=== PATIENT | female | born 1980 | race Caucasian/White ===

== ENCOUNTER → 2016-08-17 12:31 | Outpatient (CLI) | payer BC ==
[2014-05-14 04:22] VITALS: BMI 29.9
[~2016-08-17 12:31] MED LIST: DIABETA2.5 MG PO; IBUPROFEN800 MG PO; PERCOCET 10/3251 TA1 PO; PRENAVITE1 TAB PO
== END | disposition home or self-care (01) ==
LOC: D.LDO 12:31
DX: O30.93 Multiple gestation, unspecified, third trimester (principal); Z3A.32 32 weeks gestation of pregnancy

== ENCOUNTER → 2016-08-20 16:57 | Outpatient (CLI) | payer BC ==
[2014-05-14 04:22] VITALS: BMI 29.9
== END | disposition home or self-care (01) ==
LOC: D.LDO 16:57
DX: O26.893 Other specified pregnancy related conditions, third trimester (principal); Z3A.33 33 weeks gestation of pregnancy

== ENCOUNTER → 2016-08-24 12:45 | Outpatient (CLI) | payer BC ==
[2014-05-14 04:22] VITALS: BMI 29.9
== END | disposition home or self-care (01) ==
LOC: D.LDO 12:45
DX: Z34.93 Encounter for supervision of normal pregnancy, unspecified, third trimester (principal); Z3A.33 33 weeks gestation of pregnancy

== ENCOUNTER → 2016-08-27 17:42 | Outpatient (CLI) | payer BC ==
[2014-05-14 04:22] VITALS: BMI 29.9
== END | disposition home or self-care (01) ==
LOC: D.LDO 17:42
DX: O30.93 Multiple gestation, unspecified, third trimester (principal); Z3A.34 34 weeks gestation of pregnancy

== ENCOUNTER → 2016-08-31 12:51 | Outpatient (CLI) | payer BC ==
[2014-05-14 04:22] VITALS: BMI 29.9
== END | disposition home or self-care (01) ==
LOC: D.LDO 12:51
DX: O09.893 Supervision of other high risk pregnancies, third trimester (principal); Z3A.34 34 weeks gestation of pregnancy

== ENCOUNTER → 2016-09-03 17:47 | Outpatient (CLI) | payer BC ==
[2014-05-14 04:22] VITALS: BMI 29.9
== END | disposition home or self-care (01) ==
LOC: D.LDO 17:47
DX: O30.93 Multiple gestation, unspecified, third trimester (principal); Z3A.35 35 weeks gestation of pregnancy

== ENCOUNTER → 2016-09-04 09:22 | Outpatient (CLI) | payer BC ==
[2014-05-14 04:22] VITALS: BMI 29.9
[2016-09-04 11:24] LABS: BASOPHILS 0.2 % (0.0-2.0); EOSINOPHILS 1.7 % (0-7); HEMATOCRIT 36.7 % (36.0-48.0); HEMOGLOBIN 12.3 g/dL (12-16); IMMATURE GRANULOCYTES 0.4 % (0-5); LYMPHOCYTES 20.9 % (15-50); MCH 31.1 pg (26.0-34.0); MCHC 33.5 g/dL (31.0-37.0); MCV 92.7 fL (80.0-100.0); MEAN PLATELET VOLUME 12.2 fL (7.4-10.4); MONOCYTES 4.4 % (2-11); NEUTROPHILS 72.4 % (40-80); PLATELET COUNT 182 10x3/uL (130-400); RBC 3.96 10x6/uL (4.00-5.40); RDW 13.9 % (11.5-14.5); WBC 8.9 10x3/uL (4.8-10.8)
[2016-09-04 11:34] LABS: APPEARANCE HAZY (CLEAR); BILIRUBIN NEGATIVE (NEGATIVE); COLOR YELLOW (YELLOW); GLUCOSE NEGATIVE (NEGATIVE); KETONE NEGATIVE (NEGATIVE); LEUKOCYTE ESTERASE TRACE (NEGATIVE); NITRITE NEGATIVE (NEGATIVE); PROTEIN TRACE mg/dL (NEGATIVE); SPECIFIC GRAVITY 1.015 (1.005-1.020); UROBILINOGEN NORMAL (NORMAL)
[2016-09-04 11:40] LABS: BACTERIA MODERATE /hpf (NONE SEEN); EPITHELIAL CELLS 0-5 /hpf (0-5); RED CELLS - URINE 0-5 /hpf (0-5); WHITE CELLS - URINE OCC /hpf (0-5)
== END | disposition home or self-care (01) ==
LOC: D.LDO 09:22
PROVIDERS: Obstetrics & Gynecology
DX: O30.003 Twin pregnancy, unspecified number of placenta and unspecified number of amniotic sacs, third trimester (principal); Z3A.35 35 weeks gestation of pregnancy

== ENCOUNTER → 2016-09-07 12:28 | Outpatient (CLI) | payer BC | END | disposition home or self-care (01) | LOC: D.LDO 12:28 | DX: O30.93 Multiple gestation, unspecified, third trimester (principal); Z3A.35 35 weeks gestation of pregnancy ==

== ENCOUNTER → 2016-09-10 11:35 | Outpatient (CLI) | payer BC ==
[2014-05-14 04:22] VITALS: BMI 29.9
== END | disposition home or self-care (01) ==
LOC: D.LDO 11:35
DX: O30.93 Multiple gestation, unspecified, third trimester (principal); Z3A.36 36 weeks gestation of pregnancy

== ENCOUNTER 2016-09-12 06:53 | Inpatient (IN) | payer BC ==
[2016-09-12] VITALS (10 sets, daily range): BP systolic 102–127; BP diastolic 66–85; Ht 152.4 cm; Wt 67.7 kg
[~2016-09-12] VITALS: Ht 152.4 cm; Wt 67.7 kg
[2016-09-12 08:47] LABS: HEMATOCRIT 41.7 % (36.0-48.0); HEMOGLOBIN 14.4 g/dL (12-16); MCH 31.1 pg (26.0-34.0); MCHC 34.5 g/dL (31.0-37.0); MCV 90.1 fL (80.0-100.0); MEAN PLATELET VOLUME 12.8 fL (7.4-10.4); RBC 4.63 10x6/uL (4.00-5.40); RDW 13.5 % (11.5-14.5); WBC 11.6 10x3/uL (4.8-10.8)
--- NOTE | 2016-09-12 09:42 | NUR ---
BABY A BORN AT 0920 BABY B BORN AT 0921
--- NOTE | 2016-09-12 10:45 | NUR ---
RECEIVED FROM RECOVERY ROOM FOLLOWING REPEAT C/S THIS AM. SEE SHIFT ASSESSMENT FOR NURSING ASSESSMENT. HOB AT 20 DEGREES PER PRESS TOOL MAKER TO NOT RAISE HOB AT THIS TIME DUE TO POTENTIAL FOR SPINAL BAHENA. IV PATENT, BABIN CATH PATENT AND ATTACHED TO LEG. UNABLE TO MOVE LE AT THIS TIME. ALERT AND ORIENTED WITHOUT C/O PAIN AT THIS TIME. SAW INFANTS IN OR AND READY TO SEE LUX. SIDE RAILS UP X 2, CALL LIGHT IN REACH.
--- NOTE | 2016-09-12 11:01 | NUR ---
DEMEROL TRIMMER CLIMBER INITIATED. 10 MG AT INTERVALS OF Q 10 MINS PER MD ORDER. PT INSTRUCTED ON DEMEROL TRIMMER CLIMBER ADMINISTRATION. ALSO INSTRUCTED ON PURPOSE OF PITOCIN . INSTRUCTED ON INCENTIVE SPIROMETER. SCDS' IN PLACE AND PUMP IS ON. ICE CHIPS GIVEN, ICE PACK ON INCISION, EXTRA BLANKET GIVEN FOR WARMTH.
--- NOTE | 2016-09-12 11:05 | NUR ---
U/2 FIRM, [place] SMALL INCENTIVE SPIROMETER X 3 COMPLETED WITH COUGH NOTED. EXPLAINED IMPORTANCE OF USING EVERY HOUR AND PRN TO PROMOTE DEEP BREATHS AND COUGHING. VERBALIZED UNDERSTANDING. VISITORS IN ROOM FOR SHORT TIME AND LEFT. SIDE RAILS REMAIN UP AND CALL LIGHT IN REACH.
--- NOTE | 2016-09-12 11:20 | NUR ---
U/2 FIRM RUBRA SMALL. CLEAN LUCY-PADS ON X 2. NO REQUESTS AT THIS TIME. TELEHEALTH NURSE EDUCATOR AND CALL LIGHT IN REACH.
--- NOTE | 2016-09-12 11:50 | NUR ---
300 ML PINK TINGE URINE EMPTIED FROM BABIN CATH. SMALL BLOOD CLOT NOTED IN BAG. URINE IN TUBING CLEAR YELLOW WITHOUT EVIDENCE OF BLOOD.
--- NOTE | 2016-09-12 12:09 | NUR ---
CONTACTED MR TONEY CRNA TO SEE HOW LONG PATIENT NEEDS TO LAY FLAT. HE OK'D RAISING BE 30-40 DEGREES FOR NEXT 3-4 HOURS. RAISED PT HOB 40 DEGRESS TO TO DRINK CLEAR LIQUID DIET.
--- NOTE | 2016-09-12 13:00 | NUR ---
ATE 100% CLEAR LIQUID DIET. BEGINNING TO MOVE LE SLIGHTLY. C/O STARTING TO FEEL SOME INCISIONAL PAIN STATES "I'VE ONLY PUSHED THAT BUTTON TWICE" REINSTRUCTED ON USE OF SOLAR DESIGN ENGINEER CONTROL AND ENCOURAGED TO USE NEEDED. VERBALIZED UNDERSTANDING. HAS SEEN INFANTS "I GOT TO CUDDLE THEM BRIEFLY AND TRIED TO BREASTFEED. I FELT SOME CRAMPING". SITTING AT 40 DEGREES WITHOUT C/O HEADACHE. VISITORS ARRIVED TO ROOM AT THIS TIME. CALL LIGHT IN REACH.
--- NOTE | 2016-09-12 14:11 | NUR ---
U/2 FIRM MIDLINE, RUBRA SMALL CLEAN LUCY-PADS X 2 PLACED. INCENTIVE SPIROMETER USED X 3. COUGH AND DEEP BREATHED. POSITIONED TO LEFT SIDE. SIDE RAILS UP X 2, CALL LIGHT AND READY MIX TRUCK DRIVER CONTROLS IN REACH. OFFERED OTHER PO FLUIDS BUT DECLINES AT THIS TIME. CALLED DR HARTMANN TO CHECK ON TORADOL ORDER FOR CONTINUED 7/10 PAIN. NEW ORDERS RECEIVED.
--- NOTE | 2016-09-12 14:24 | NUR ---
TORADOL 30 MG GIVEN IVP AFTER DISCUSSING MEDICATION WITH PATIENT.
--- NOTE | 2016-09-12 15:03 | NUR ---
AROUSED EASILY FROM SLEEP. 5/10 ON PAIN SCALE, PUSHING MANAGER CHEMISTRY PRN. NO DISTRESS NOTED. I&0 COMPLETED. ENCOURAGED TO REST AND CONTINUE MANAGER CHEMISTRY PRN. SIDE RAILS UP X 2, CALL LIGHT IN REACH.
--- NOTE | 2016-09-12 16:15 | NUR ---
LAYING ON LEFT SIDE. PLAN REPOSITION TO RIGHT SIDE AFTER LYoly HERNANDEZ, NURSERY AIRCRAFT PART ASSEMBLER IS FINISH TALKING TO PATIENT. I&O COMPLETED 4/10 ON PAIN SCALE. REQUESTED FRESH WATER. SIDE RAILS UP X 2, CALL LIGHT IN REACH.
--- NOTE | 2016-09-12 17:07 | NUR ---
ASSISTED TO SITTING POSITION FOR CLEAR LIQUID DINNER. U/2 FIRM MIDLINE. RUBRA SCANT TO SMALL. LUCY-PADS X 2 CHANGED. 2-3/10 ON PAIN SCALE, SAYS THAT TORADOL "IS WONDERFUL". SIDERAILS UP, CALL LIGHT AND PLATE SHEAR OPERATOR IN REACH. WRITTEN INFORMATION GIVEN ON TWIN . NO ADDITIONAL REQUESTS AT THIS TIME. FOB ARRIVED.
--- NOTE | 2016-09-12 18:23 | NUR ---
CALIBRATION CHECKER VISITING A THIS TIME. INFANTS X 2 TO ROOM. FOB PRESENT. ASSISTED TO SITTING POSITION TO BOTTLE FEED INFANT. 35 ML OUTPUT THIS HOUR. ENCOURAGED PO HYDRATION. WILL MONITOR FOR CONTINUED DECREASE THIS NEXT HOUR. SIDE RAILS UP X 2, CALL LIGHT IN REACH.
--- NOTE | 2016-09-12 18:39 | NUR ---
DR HARTMANN WAS NOTIFIED OF DECREASED URINE OUTPUT OF 35 ML LAST HOUR. NEW ORDERS WERE RECEIVED TO GIVE 500 ML NS FLUID BOLUS. IV NS HUNG PIGGYBACK AT 999 ML/HR FOR TOTAL OF 500 ML.
--- NOTE | 2016-09-12 19:10 | NUR ---
RCVD PT FROM AM SHIFT RN. PT SITTING UP IN BED FEEDING BABY B AT THIS TIME. FOB IN ROOM. BABY A IN OPEN CRIB AT BEDSIDE. PT RATES PAIN 4/10 CURRENTLY, BUT TOLERABLE WITH NUT FORMER AT THIS TIME. BREATH SOUNDS CLEARED WITH COUGH. I.S. TEACHING AND DEMONSTRATION DONE AT THIS TIME, WELL BRACING ABD WHEN COUGHING TO REDUCE PAIN. BOWEL SOUNDS ACTIVE X4. FUNDUS FIRM. U/2, ML. SCANT LOCHIA RUBRA NOTED ON PERIPAD. NO CLOTS. 50ML CLEAR YELLOW URINE NOTED IN UROMETER AT THIS TIME. HR-RRR, PPP, SCDS TO BLE AND CONNECTED TO PUMP. PT DENIES NEEDS AT THIS TIME. WILL CONT POC. BED LOW, WHEELS LOCKED, CL IN REACH. SIDE RAILS UP X2.
--- NOTE | 2016-09-12 19:48 | NUR ---
PT RECEIVED TO MY CARE. REPORT RECIEVED FROM Prabhu LI RN. RN TO PT BS. PT RESTING IN BED IN SEMI-FOWLERS POSITION, HOLDING , IN NO ACUTE DISTRESS. INTRODUCTIONS MADE AND POC DISCUSSED, QUESTIONS ANSWERED. PT DENIES ANY NEEDS AT THIS TIME. BED IN LOW POSITION, SIDE RAILS UP TIMES 2, CALL LIGHT AND PHONE IN REACH. FAMILY TIMES 2 REMAINS AT PT BS FOR SUPPORT AND ASSISTANCE. INFANTS REMAIN AT PT BS FOR COUPLET CARE. WILL CONT TO MONITOR PT STATUS.
--- NOTE | 2016-09-12 20:56 | NUR ---
RN TO PT BS. PT RESTING IN BED IN SEMI-FOWLERS POSITION IN NO ACUTE DISTRESS. POC DISCUSSED WITH PT AND QUESTIONS ANSWERED. WILL PREPARE TO AMBULATE PT. TORDAL 30MG IVP GIVEN NOW. DEMEROL 100MG PO PROVIDED NOW. VS TAKEN, WNL. BABIN REMOVED, TIP INTACT, 75ML CONCENTRATED ERIKA URINE REMAIN IN BABIN CATH. IV SALINE LOCKED AT THIS TIME, DEMEROL MICA PLATE LAYER D/C'D. PT RATES PAIN 08/07. PT REQUESTS REGULAR DIET. SANDWICH TRAY PROVIDED TO PT WITH FRESH WATER MUG. PT DENIES ANY FURTHER NEEDS AT THIS TIME. BED IN LOW POSITION, SIDE RAILS UP TIMES 2, CALL LIGHT AND PHONE IN REACH. WILL CONT TO MONITOR PT STATUS.
--- NOTE | 2016-09-12 21:50 | NUR ---
RN TO PT BS. PT RESTING IN BED IN SEMI-FOWLERS POSITION IN NO ACUTE DISTRESS. POC DISCUSSED WITH PT AND QUESTIONS ANSWERED. PT ASSISTED WITH AMBULATION. PT AMBULATED TO BR WITH MINIMAL ASSISTANCE. PT UNABLE TO VOID. PT CLEANED SELF WITH WASHCLOTHES, LUCY PAD AND PANTIES PLACED. CLEAN GOWN PLACED. COMPLETE LINEN CHANGE TO BED. PT PROVIDED WITH JELLO AND CHIPS PER REQUEST. PT RETURNED AMBULATION TO BED WITH MINIMAL ASSISTANCE. PT DENIES ANY FURTHER NEEDS. BED IN LOW POSITION, SIDE RAILS UP TIMES 2, CALL LIGHT AND PHONE IN REACH. WILL CONT TO MONITOR PT STATUS.
--- NOTE | 2016-09-12 22:15 | NUR ---
INFANTS TRANSFERED TO PT'S ROOM VIA OPEN CRIB. ID BANDS VERIFIED TIMES 4. INSTRUCTIONS GIVEN TO PT ON INFANT FEEDING SCHEDULE. QUESTIONS ANSWERED. PT REQUESTS TO SPEAK TO NURSERY RN REGARDING . NURSERY RN NOTIFIED. PT DENIES ANY FURTHER NEEDS AT THIS TIME. BED IN LOW POSITION, SIDE RAILS UP TIMES 2, CALL LIGHT AND PHONE IN REACH. INFANTS REMAIN AT PT BS FOR COUPLET CARE. WILL CONT TO MONITOR PT STATUS.
[2016-09-13 00:35] VITALS: BP 102/63
--- NOTE | 2016-09-13 00:40 | NUR ---
RN CALLED TO PT BS WITH C/O PAIN, RATES 12/07, REQUESTS MEDICATION. DEMEROL 100MG AND 1 TAB IBUPROFEN PROVIDED AT THIS TIME WITH FRESH WATER. VS TAKEN, WNL. PT DENIES ANY FURTHER NEEDS AT THIS TIME. BED IN LOW POSITION, SIDE RAILS UP TIMES 2, CALL LIGHT AND PHONE IN REACH. WILL CONT TO MONITOR PT STATUS.
--- NOTE | 2016-09-13 02:51 | NUR ---
RN TO PT BS FOR ROUNDS. PT RESTING IN BED IN SEMI-FOWLERS POSITION, WITH EYES CLOSED, IN NO ACUTE DISTRESS. RESPIRATIONS EVEN AND UNLABORED. BED IN LOW POSITION, SIDE RAILS UP TIMES 2, CALL LIGHT AND PHONE IN REACH. WILL CONT TO MONITOR PT STATUS.
--- NOTE | 2016-09-13 04:03 | NUR ---
RN CALLED TO PT BS. PT ASSISTED TO BR. PT AMBULATED WITH MINIMAL ASSISTANCE. PT ABLE TO VOID. PT RETURNED AMBULATION WITH MINIMAL ASSISTANCE. PT ASSISTED WITH BREAST PUMP. PT DENIES ANY FURTHER NEEDS AT THIS TIME. BED IN LOW POSITION, SIDE RAILS UP TIMES 2, CALL LIGHT AND PHONE IN REACH. WILL CONT TO MONITOR PT STATUS.
[2016-09-13 04:26] VITALS: BP 103/75
--- NOTE | 2016-09-13 04:31 | NUR ---
CALLED TO PT BS WITH C/O PAIN, RATES 01/07. REQUESTS MEDICATION. DEMEROL 100MG PO PROVIDED AT THIS TIME. VS TAKEN, WNL. PT DENIES ANY FURTHER NEEDS AT THIS TIME. BED IN LOW POSITION, SIDE RAILS UP TIMES 2, CALL LIGHT AND PHONE IN REACH. WILL CONT TO MONITOR PT STATUS.
--- NOTE | 2016-09-13 05:31 | OP ---
PATIENT NAME: JEFERSON MICHELLE MEDICAL RECORD: [id number] :79 LOCATION:[id number] ADMISSION DATE:09/12/16 SURGEON: JEANE HARTMANN MD DATE OF OPERATION: 09/12/2016 PREOPERATIVE DIAGNOSES: Twin gestation, 36.4 weeks, previous section in labor, desires sterilization. POSTOPERATIVE DIAGNOSES: Twin gestation, 36.4 weeks, previous section in labor, desires sterilization. PROCEDURE: Repeat low transverse section and bilateral salpingectomy. SURGEON: Jeane Hartmann MD ANESTHESIA: Spinal. FINDINGS: Baby A in vertex presentation with male 4 pounds 11 ounces, 7 and 9 Apgars, baby B breech presentation, male infant, 4 pounds 11.4 ounces, 8 and 9 Apgars. ESTIMATED BLOOD LOSS: 800 cc. COMPLICATIONS OF SURGERY: None. OPERATIVE NOTE: The patient was taken to the OR and under adequate spinal anesthesia, prepped and draped in the usual manner for a section delivery. A transverse incision made in the lower abdomen and extended through subcutaneous tissue, fascia, dividing muscles in the midline. Peritoneum was elevated and incised and this incision extended from the symphysis pubis to within 4 cm of the umbilicus, avoiding the bladder and abdominal organs. Adhesions were encountered over the lower uterine segment. These were carefully lysed using Samaniego scissors. Transverse incision was then made in the lower uterine segment and baby A delivered easily from a vertex presentation, cord doubly clamped and ligated and the infant handed to waiting nursery personnel. Baby B was then delivered from a breech presentation without difficulty. Cord was doubly clamped and ligated and the infant handed to waiting nursery personnel. Placenta was then removed manually. The uterus was closed in two layers, first layer running interlocking #1 chromic suture, second layer an imbricating #1 chromic suture. Pelvis was copiously irrigated and suctioned and hemostasis was confirmed. The tubes were then removed using hemostats and 2-0 chromic free tie sutures without difficulty. Specimens were sent for further0 evaluation. The pelvis was again copiously irrigated and suctioned and hemostasis was confirmed. The fascial layer then closed in a running noninterlocking #1 PDS loop suture. Skin incision closed using a 2-0 plain gut subcuticular suture. Dermabond was applied, a Steri-Strip dressing applied and the patient went to the recovery area in good condition. TRANSINT:[id number] Voice Confirmation ID: [id number] DOCUMENT ID: [id number] OPERATIVE REPORT [id number] JEFERSON MICHELLE BRENDA MD at 0531 CC: [id number] DICTATION DATE: 09/12/16 1037 SAW SUPERINTENDENT: 09/12/16 1156 ADM IN [place] [id number] [place] [address]
--- NOTE | 2016-09-13 05:51 | NUR ---
RN TO PT BS. INFANT FEEDING DISCUSSED WITH PT. PT PROVIDED WITH FRESH ICE, PEN, AND LANOLIN PER PT REQUEST. INFANTS TRANSPORTED TO NURSERY FOR OBSERVATION PER PT REQUEST. REPORT ON INFANT FEEDS GIVEN TO NURSERY RN. PT DENIES ANY FURTHER NEEDS AT THIS TIME. BED IN LOW POSITION, SIDE RAILS UP TIMES 2, CALL LIGHT AND PHONE IN REACH. WILL CONT TO MONITOR PT STATUS.
[2016-09-13 07:25] VITALS: BP 101/67
[2016-09-13 07:50] LABS: HEMOGLOBIN 12.5 g/dL (12-16); MCH 30.7 pg (26.0-34.0); MCHC 33.8 g/dL (31.0-37.0); MCV 90.9 fL (80.0-100.0); MEAN PLATELET VOLUME 12.2 fL (7.4-10.4); RBC 4.07 10x6/uL (4.00-5.40); RDW 13.6 % (11.5-14.5); WBC 14.4 10x3/uL (4.8-10.8)
[2016-09-13 09:15] VITALS: BP 109/72
--- NOTE | 2016-09-13 09:23 | NUR ---
AMBULATED TO NURSERY AND BACK. SLIGHT DIZZINESS WHEN STANDING AND NOT HOLDING ON TO SOMETHING. "I FELT A LITTLE WOBBLY". BP 109/72 P 77 WHEN STANDING UP FROM BED PRIOR TO WALKING. C/O SOME "LOW FREQUENCY BUZZ IN EARS" INTERMITTENT "FOUR TO FIVE TIMES SINCE YESTERDAY" DENIES PAIN IN EARS, HAS HAD COLD SYMPTOMS > 1 WEEK, COUGH- NON PRODUCTIVE TODAY. LUNGS WERE CLEAR VS CRACKLES YESTERDAY "IT SEEMS TO HAVE GOTTEN A LITTLE BIT BETTER". SITTING IN ROCKING CHAIR NOW TO [place] WITH A. INSTRUCTED NOT TO GET UP OR OUT OF BED WITHOUT ASSISTANCE UNTIL DIZZINESS RESOLVES. FEELS DROWSY/TIRED AT THIS TIME. CALL LIGHT IN REACH.
--- NOTE | 2016-09-13 09:44 | NUR ---
FEELING DROWSY. WOULD LIKE TO GO TO BED AND TAKE A NAP. INFANT A RETURNED TO NURSERY. ASSISTED PT TO BED. CALL LIGHT IN REACH, SIDE RAILS UP X2, LIGHTS TURNED ON LOW. ENCOURAGED TO TAKE NAP. WOULD LIKE INFANTS BACK IN ABOUT TWO HOURS "NEAR LUNCH TIME".
--- NOTE | 2016-09-13 10:40 | NUR ---
AWAKE, IN BED SEMI-FOWLERS POSITIONS TALKING ON PHONE. LIGHTS ON LOW. DENIES NEEDING ANYTHING A THIS TIME. SIDE RAILS UP X 2, CALL LIGHT IN REACH. INFANTS IN NURSERY.
--- NOTE | 2016-09-13 10:55 | NUR ---
DR HARTMANN HERE FOR ROUNDS. NOTIFIED OF PT C/O DIZZINESS WHEN UP AND POSSIBLE DECREASED HEARING/COLD SYMPTOMS. DR HARTMANN VISITED PATIENT AT THIS TIME.
[2016-09-13 11:50] VITALS: BP 108/68
--- NOTE | 2016-09-13 11:55 | NUR ---
RESTING WITH EYES CLOSED. AROUSED EASILY FOR VS. U/2 FIRM MIDLINE. RUB SMALL. FOB ARRIVED AT THIS TIME. NURSERY NOTIFIED. ASSISTED TO SITTING POSITION FOR REGULAR DIET. DENIES PROBLEMS OR NEEDS AT THIS TIME. DISCUSSED GAS AND RELIEF MEASURES IF SHE IS FEELING DISCOMFORT. ENCOURAGED GETTING OOB AND AMBULATING, WARM FLUIDS AND SIDELYING POSITION. SIDE RAILS UP X 2, CALL LIGHT IN REACH. TO CALL IF ANYTHING IS NEEDED.
--- NOTE | 2016-09-13 12:00 | NUR ---
SLIGHT ERRYTHEMA AT SALINE LOCK SITE. SALINE LOCK DC'D AT THIS TIME.
--- NOTE | 2016-09-13 15:03 | NUR ---
AMBULATED TO BATHROOM WITH ASSISTANCE. SAYS SHE IS FEELING A LITTLE BETTER BUT STILL WITH "A LITTLE WOOZIE FEELING". PLANS TO AMBULATE IN [place] AND TAKE SHOWER AFTER HER PARENTS ARRIVE. INITIALLY DECLINED PAIN MEDICATION STATES "I WANT TO WAIT TILL AFTER MY SHOWER". INSTRUCTED CAN GIVE HER SOME MOTRIN NOW THAT WILL NOT MAKE HER DROWSY AND HELP PREVENT ANY PAIN FROM WORSENING. DESIRES TO TAKE MOTRIN NOW.
--- NOTE | 2016-09-13 15:09 | NUR ---
MOTRIN 600 MG GIVEN PO FOR RELIEF OF 3-4 DULL ACH IN INCISION. VISITORS AND IN ROOM. SITTING ON EDGE OF BED. NO OTHER REQUESTS.
--- NOTE | 2016-09-13 16:35 | NUR ---
SITTING UP IN BED TALKING TO VISITORS. REQUESTED TO ORDER SOMETHING FOR DINNER "I DID NOT FILL OUT MY MENU" PHONE NUMBERS GIVEN TO LISTEN TO MENU OPTIONS AND NUMBER TO CALL TO ORDER. VERBALIZED UNDERSTANDING. PAIN IS BETTER. NOW 07/10. FRESH WATER GIVEN. SIDE RAILS UP X 2, CALL LIGHT IN REACH.
--- NOTE | 2016-09-13 18:43 | NUR ---
AMBULATED IN [place] AROUND L&D TWICE. COMPLETED SHOWER AT THIS TIME. LINENS WERE CHANGED. REQUESTED SOMETHING FOR PAIN. DISCUSSED OPTIONS. REQUESTED DEMEROL 50 MG. DEMEROL 50 MG GIVEN PO FOR 4/10 INCISIONAL ACHING. INSTRUCTED TO CALL FOR HELP WHEN GETTING OOB INCASE DIZZINESS RETURNS. VERBALIZED UNDERSTANDING. SIDE RAILS UP X 2, CALL LIGHT IN REACH. INFANTS IN NURSERY. ASKED ABOUT POSSIBLE LEFT NIPPLE CRACKING. HAS BEEN USING PUMP WITHOUT RETURN OF COLOSTRUM OR BREAST MILK. SLIGHT ERRYTHEMA/ECCYMOSIS NOTED WITHOUT COMPLETE NIPPLE OR AREOLA CRACKING. RECOMMENDED US OF LANOLIN AND TO AVOID HIGH PUMP PRESSURE. WILL HAVE NURSERY MANAGER FINE DINING PUMP SETTING WITH PATIENT. VERBALIZED UNDERSTANDING.
--- NOTE | 2016-09-13 19:40 | NUR ---
RN TO PT BS TO PERFORM TON. NURSERY RN AT PT BS ASSISTING PT WITH BREAST PUMP. WILL RETURN TO PERFORM TON. PT DENIES ANY NEEDS AT THIS TIME. BED IN LOW POSITION, SIDE RAILS UP TIMES 2, CALL LIGHT AND PHONE IN REACH. WILL CONT TO MONITOR PT STATUS.
--- NOTE | 2016-09-13 20:08 | NUR ---
PT INFANT AT THIS TIME. WILL CONT TO DEFER TON.
[2016-09-13 20:27] VITALS: BP 110/71
--- NOTE | 2016-09-13 20:27 | NUR ---
TON COMPLETE. PT RESTING IN BED IN SEMI-FOWLERS POSITION, HOLDING , PT IN NO ACUTE DISTRESS. PT IS A G2 NOW P2 WITH REPEAT C/S WITH BTL 09/12/16 @ 0920 OF [facility] GESTATION MALE INFANTS @ 36.4 WKS GESTATION. AAOX3. HR REGULAR. LUNGS CTAB. ABDOMEN SOFT AND NON TENDER. BS ACTIVE TIMES 4. LOWER ABDOMINAL INCISION NOTED. NO SERI STRIPS OR TANYA NOTED AT SITE. INCISION WELL PROXIMATED WITH NO REDNESS, EDEMA, OR DRAINAGE NOTED. PT STATES SHE IS PASSING GAS BUT HAS NOT HAD A BM SINCE C/S. PT DENIES DIFFICULTY VOIDING. LUCY PAD AND PANTIES IN PLACE. FUNDUS NOT PALPATED. LOCHIA RUBRA SCANT. NO EDEMA NOTED TO UPPER OR LOWER EXTREMITIES BILATERALLY. NO IV ACCESS AT THIS TIME. NIPPLES APPEAR TO BE RED WITH POSSIBLE CRACKING STARTING. PT WITH LANOLIN AT BS AND VERBALIZED UNDERSTANDING OF USE. NURSERY RN WITH PT AT BS MULTIPLE TIMES WITH INSTRUCTION ON BREAST FEEDING AND PUMPING. FRESH WATER PROVIDED TO PT AT THIS TIME. BED IN LOW POSITION, SIDE RAILS UP TIMES 2, CALL LIGHT AND PHONE IN REACH. INFANTS REMAIN AT PT BS FOR COUPLET CARE. NURSERY RN AT PT BS TO ASSIST WITH FEEDING EFFORT. WILL CONT TO MONITOR PT STATUS.
--- NOTE | 2016-09-13 21:29 | NUR ---
PT RINGS CL. RN TO BEDSIDE. PT C/O PAIN 09/07 @ INCISION. REQUESTS AND RECEIVES MOTRIN 600MG X1 TAB PER ORDERS, SEE EMAR. PT STATES PLAN TO TAKE DEMEROL AFTER NEXT INFANT FEEDING. PT DENIES FURTHER NEEDS AT THIS TIME.
--- NOTE | 2016-09-13 23:10 | NUR ---
BABY A TRANSPORTED TO ROOM VIA OPEN CRIB FOR FEEDING. BANDS VERIFIED PER PROTOCOL. INFANT PLACED IN MOTHER'S ARMS FOR FEEDING. PT DENIES NEEDS AT THIS TIME, BUT REQUESTS DEMEROL AFTER SHE'S FINISHED FEEDING .
--- NOTE | 2016-09-13 23:50 | NUR ---
RN TO PT BS FOR ROUNDS. PT RESTING IN BED ATTEMPTING TO FEED . PT REQUESTS ASSISTANCE BOTTLEFEEDING . RN BOTTLEFED 32ML SIMILAC AT THIS TIME. THEN TRANSFERED TO NURSERY VIA OPEN CRIB PER PT REQUEST. REPORT GIVEN TO NURSERY RN. PT DENIES ANY FURTHER NEEDS AT THIS TIME. BED IN LOW POSITION, SIDE RAILS UP TIMES 2, CALL LIGHT AND PHONE IN REACH. WILL CONT TO MONITOR PT STATUS.
--- NOTE | 2016-09-14 00:33 | NUR ---
RN CALLED TO PT BS WITH C/O PAIN, RATES 01/07, REQUESTS MEDICATION. DEMEROL 100MG PO PROVIDED AT THIS TIME WITH FRESH WATER. PT DENIES ANY FURTHER NEEDS. BED IN LOW POSITION, SIDE RAILS UP TIMES 2, CALL LIGHT AND PHONE IN REACH. WILL CONT TO MONITOR PT STATUS.
--- NOTE | 2016-09-14 01:52 | NUR ---
BABY B TRANSPORTED TO ROOM VIA OPEN CRIB FOR FEEDING. BANDS VERIFIED PER PROTOCOL. PLACED IN MOTHER'S ARMS. PT INST TO ATTEMPT TO FEED 30 ML IN 30 MINS AND IF SHE HAS TROUBLE TO CALL FOR ASSISTANCE. PT VERBALIZED UNDERSTANDING. DENIES NEEDS AT THIS TIME.
--- NOTE | 2016-09-14 03:04 | NUR ---
PT CALLS, C/O HEARTBURN AND GAS. PER DR. HARTMANN, OK FOR PT TO HAVE SIMETHICONE 80MG PO PRN Q4 H AND BICITRA 30ML PO Q4H PRN. ORDERS PLACED AND NOTED. BICITRA PROVIDED TO PT AT THIS TIME. PT DENIES ANY FURTHER NEEDS. BED IN LOW POSITION, SIDE RAILS UP TIMES 2, CALL LIGHT AND PHONE IN REACH. WILL CONT TO MONITOR PT STATUS.
[2016-09-14 07:20] VITALS: BP 116/79
--- NOTE | 2016-09-14 07:20 | NUR ---
RECEIVED PT LYING SUPINE IN BED. WAKES UPON ENTERING ROOM. AAO X 3. VSS. HRRR WITHOUT AUDIBLE MURMUR. BBS CLEAR. BS X 4. ABDOMEN SOFT/NON-DISTENDED. FUNDUS FIRM AT U/U. RUBRA LOCHIA SCANT AMT. PT DENIES HEAVY BLEEDING OR PASSING CLOTS. ABDOMINAL INCISION WITH STERISTRIPS. NO DRAINAGE, REDNESS OR SWELLING NOTED. NEG HOMANS' SIGN. PPP. SLIGHT NON-PITTING EDEMA NOTED TO ANKLES AND FEET. PT OOB AND AMB TO BR AT THIS TIME. TOLERATES ACTIVITY WELL. NO C/O VOICED.
--- NOTE | 2016-09-14 08:00 | NUR ---
PT SITTING UP IN BED. FEEDING ONE OF INFANTS. DENIES NEEDS OR C/O.
--- NOTE | 2016-09-14 09:07 | NUR ---
PT AMBULATORY IN HALLS. TOLERATING ACTIVITY WELL. DENIES C/O. REQUESTS AND RECEIVES ICE WATER.
--- NOTE | 2016-09-14 10:30 | NUR ---
PT SITTING UP IN BED. ON CELL PHONE AT THIS TIME. DENIES C/O OR NEEDS.
--- NOTE | 2016-09-14 11:58 | NUR ---
Hai Rahman 09/14/16 LE@ 10:00-11:30 S: Patient states she hasn't breastfed as much but would like to breastfeed. States she has been pumping and her nipple, well breast are sore, she notice this when she took a shower. States she had the pump turned up to a 5. O: Patient sitting up in bed, Dr. Narayanan and nursery nurse in room taking with patient. Infants are in crib. Asked to see patients nipples, both appear to have ring around the areola, cracked, looks like her areola and nipple are being sucked into the flange with use, incorrect size flange using, the suction is too high on the pump when using. States they are painful to touch. Provided handout on hand expressing and showed client how to do so, verified client does know how to properly hand express. Recommend that she hand express if she doesn't place infants to the breast, apply lanolin to nipples, allow to air dry following feeding. Sore nipples can heal, before using the pump again; she would need another size flange. Provided handout on pumping primer, with illustrated pictures on pumping with flange size, how to verify correct fit, asked if she could tell me which one does it look like, when she is pumping, state both the too small and too large, currently using a size 27. Will try and order patient a bigger size from health department if available. Patient isn't aware of where the 24 size flange is that came with the pump. Recommended to hand express every 2-3 hours if she isn't latching infants to the breast. can latch to the breast if she likes. Verifying babies are latch correctly, when put to the breast. does take time and patience in the beginning. Supply and demand what infant takes out your body will make more of. Explain breastmilk composition. Breastfed babies should eat on demand, explain feeding cues, allow to latch to breast for every feeding, this will help with establishing your milk supply. Baby should latch upon feeding cues, allow baby to nurse as long as she likes, baby will usually remove herself from the breast or possible fall asleep at the breast. Try burping , stimulate, and offer the other breast. If only wants one breast that is ok. Every baby is different and most would like both breast at feedings. Provided and explained handout on skin to skin, growth spurs, positioning, what to expect the first week, engorgement, waking a sleeping baby, and PAC fact sheet. Explain and demonstrated how to verify infant is in the correct position for feeding. Turn infant tummy to tummy, nose opposite of nipple, allow infant to self-latch. Please ask for help as needed with latching . Even if you only latch babies for 5 minutes each, every drop is beneficial to infants. Asked if any questions or concerns, declined, thanked LC. Provided work cell number, please call as needed. A: Patient concern about sore nipples. P: Hand express as needed if infants don't latch to the breast, heal sore nipples, don't use the size 27 to pump, apply lanolin to nipples and areola, doesn't have to be removed prior to latching . Made nursing staff aware of patient sore nipples. Sandra Dumont, CLC
--- NOTE | 2016-09-14 12:20 | NUR ---
PT SITTING UP IN BED. CONSUMING LUNCH AT THIS TIME. INFANTS IN OPEN CRIB TOGETHER. PT DENIES NEEDS OR C/O.
--- NOTE | 2016-09-14 13:42 | NUR ---
PT SITTING UP IN BED. NSY STAFF IN ROOM. PT REQUESTS AND RECEIVES KLEENEX.
[2016-09-14 15:30] VITALS: BP 113/74
--- NOTE | 2016-09-14 15:30 | NUR ---
PT SITTING UP IN BED. VISITS WITH SO. VSS. DENIES C/O. REQUESTS ABDOMINAL BINDER. WILL ASK DR HARTMANN.
--- NOTE | 2016-09-14 16:35 | NUR ---
PT C/O HEARTBURN/INDIGESTION. BICITRA 30 ML GIVEN PO ORDERED. PT INSTRUCTED ON MED. VERBALIZES UNDERSTANDING.
--- NOTE | 2016-09-14 17:00 | NUR ---
DR HARTMANN ON UNIT. NOTIFIED OF PT REQUEST FOR ABDOMINAL BINDER. NEW ORDER RECEIVED.
--- NOTE | 2016-09-14 17:29 | NUR ---
PT SITTING UP IN BED. FEEDING ONE OF TWINS. ABDOMINAL BINDER PROVIDED TO PT. PT TO NOTIFY NURSE WHEN FINISHED FEEDING.
--- NOTE | 2016-09-14 18:33 | NUR ---
PT SITTING UP IN BED. FEEDING ONE OF THE TWINS AND TALKING ON PHONE WITH NURSERY STAFF. OTHER INFANT FUSSY. DIAPERED AND WRAPPED WITH BLANKET X 2.
--- NOTE | 2016-09-14 19:00 | NUR ---
REPORT GIVEN TO ON-COMING SHIFT.
--- NOTE | 2016-09-14 19:11 | NUR ---
PT AMBULATORY IN HALLS AND AMB BACK TO ROOM. C/O INCISIONAL PAIN OF "3" ON 0-10 PAIN SCALE. C/O "HEARTBURN AND GAS". IBUPROFEN 600 MG AND MYLICON 80 MG CHEW TAB GIVEN PO ORDERED. PT INSTRUCTED ON MEDS. VERBALIZES UNDERSTANDING.
[2016-09-14 20:00] VITALS: BP 109/71
--- NOTE | 2016-09-14 20:00 | NUR ---
THIS RN TO BEDSIDE FOR SHIFT ASSESSMENT. PT CURRENTLY LYING IN BED AWAKE APPLYING BREAST CREAM. PAIN ASSESSED. PT RATES PAIN 3/10. DENIES NEEDING ADDITIONAL PAIN INTERVENTIONS AT THIS TIME. V/S OBTAINED. SEE FLOWSHEET.EXPIRATORY RUB AUDIBLE BILATERALLY TO UPPER LOBES. PT HAS A NONE PRODUCTIVE COUGH (PT PRESENTED TO L&D ON SAT W/COUGH PRESENT). BREATH SOUNDS DO NOT CLEAR WITH COUGH. PT INSTRUCTED TO CONTINUE USING I.S. EVERY HOUR WHILE AWAKE. PT VEBALZIES UNDERSTANDING AND IS AGREEABLE. ABD SOFT, SLIGHTLY DISTENDED. PT REPORTS BEING ABLE TO PASS FLATUS, BUT HAS NOT HAD A BM SINCE DELIVERY. PT CURRENTL HAS AN ABD BINDER ON. BINDER REMOVED. LOW TRANSVERSE INCISION C/D/I W/DERMABOND. BOWELSOUNDS PRESENT X 4. FUNDUS FIRM,U/2, PT REPORTS SMALL TO SCANT LOCHIA TODAY. PT ASSISTED W/PLACING ABD BINDER BACK ON. SLIGHT,GENERALIZED EDEMA NOTED TO LOWER EXTREMETIES.PEDAL PULSES PRESENT X 2. PT DENIES NEEDS AT THIS TIME EXCEPT ICE WATER. ICE WATER SERVED. ONE IN CRIB AT BEDSIDE AT THIS TIME.
--- NOTE | 2016-09-14 21:00 | NUR ---
ROUNDS MADE. PT CURRENTLY TALKING ON THE PHONE. DENIES NEEDS AT THIS TIME. RATES PAIN 2-3/10.
--- NOTE | 2016-09-14 22:00 | NUR ---
ROUNDS MADE. PT SITTING UP IN BED FILLING OUT PAPERWORK. PAIN AND NEEDS ASSESSED. PT REPORTS PAIN 08/07. REQUEST ADDITIONAL MEDICATION FOR C/O GAS. PT INFORMED THIS RN WILL REVIEW WHAT SHE MAY HAVE FOR CONTINUED C/O GAS. FRESH ICE WATER SERVED.
--- NOTE | 2016-09-14 22:07 | NUR ---
PT GIVEN MOM FOR C/O GAS PAIN. NO FURTHER NEEDS VOICED. CONTINUED POC DISCUSSED W/PT. PT VERBALIZES UNDERSTANDING AND IS AGREEABLE.
--- NOTE | 2016-09-14 22:30 | NUR ---
SHANAN NURSE TO ROOM TO TRANSPORT INFANTS BACK TO NURSERY. PT REPORTS TO LIDYA KERN RN THAT SHE PLANS TO REST UNTIL NEXT FEEDING TIME. PT ALLOWED TO REST UNTIL THAT TIME.
--- NOTE | 2016-09-15 | NUR ---
INFANTS TO ROOM AT THIS TIME PER NBN NURSE. NO NEEDS VOICED AT THIS TIME.
--- NOTE | 2016-09-15 00:45 | NUR ---
PT RINGS CALL LIGHT. THIS RN TO ROOM. PT REQUESTING MOTRIN FOR C/O INCISIONAL PAIN THAT SHE RATES 2/10. MOTRIN GIVEN. PT QUESTIONING IF SHE CAN CHEW HER PERSONAL TUMS TABLETS FOR C/O HEARTBURN BECAUSE THE BICITRA, SIMETHICONE NOR MOM HAVE HELPED W/HER HEARTBURN LIKE THE TUMS DOES. PT INFORMED THAT DR HARTMANN WILL BE QUESTIONED ABOUT THE SAFETY AND PT WILL BE NOTIFIED. PT VERBALIZES UDNERSTANDING AND IS AGREEABLE. FRESH ICE WATER AND A CUP OF ICE SERVED.
--- NOTE | 2016-09-15 01:30 | NUR ---
PT AMBULATING IN [place] TO NURSERY TO RETURN AN HAT THEN RETURNS TO ROOM. PT REPORTS FEELING BETTER SINCE MOTRIN ADMIN AND REPORTS CHEWYING HER TUMS HAS HELPED W/HER HEARTBURN. PT DENIES NEEDS AT THIS TIME. WISHES TO REST UNTIL NEXT FEEDING.
--- NOTE | 2016-09-15 04:20 | NUR ---
ROUNDS MADE. PT CURRENTLY SITTING UP IN BED FEEDING JUST FINISHING FEEDING BABY B. PT DENIES PAIN OR NEED FOR PAIN INTERVENTIONS AT THIS TIME. PT REQUEST ASSISTANCE W/PLACING BABY B BACK IN CRIB AND RECEIVING BABY A FOR FEEDING. ASSISTANCE PROVIDED.
--- NOTE | 2016-09-15 06:15 | NUR ---
ROUNDS MADE. PT RESTING QUIETLY IN LOW ROMERO'S W/EYES CLOSED. RESP EVEN. PT LEFT UNDISTURBED AT THIS TIME.
[2016-09-15 07:27] LABS: RAPID PLASMA REAGIN Non Reactive (Non Reactive)
--- NOTE | 2016-09-15 07:30 | NUR ---
Pt awake and feeding infants, [employer] fitness sales consultant at bedside to provided any needed assistance. Pt denies any needs at this time.
--- NOTE | 2016-09-15 08:45 | NUR ---
Pt amb to nbn with infants in crib. denies need for assistance
--- NOTE | 2016-09-15 10:07 | NUR ---
Lacey Valles 09/15/16 LE@ 9:00 S: Client states she feels better, will take a shower soon, infants have to stay another night, so she will be rooming in. Haven't latched infant yesterday due to her nipples being sore, they do feel better verses yesterday. States she didn't pump either, would like to try and pump or latch babies O: Patient sitting up in bed, infants in nursery. Asked if she was able to hand express yesterday, patient didn't respond. Provided client with a flange size 24, let's try this flange to see if it fits better. Showed patient how to use breast pump, verified using a size 24 does fit perfect (showed how to verify she is using the correct size flange and how to proper place flange on her breast), pumped on the lowest setting for 10 minutes. When removing flange from her breast, patient nipples don't appear red or bleeding, patient states no discomfort and states it feels a lot better. Encouraged to either pump or latch to the breast today. If she doesn't latch infants, she needs to pump every 2-3 hours for 15 minutes, 3-4 hours at night. Stimulating will help her body, get the signal, that milk needs to be made, because there is a demand for it. It is ok to latch to the breast, just make sure infant is latched correctly (re-explained how to verify infant is latched correctly). Patient areolas do look better today, they can still be sore but are healing, give it time. With latching infant correctly and pump on the lowest setting, and using the correct size flange, sore nipples do heal. You are able to breastfeed and pump with sore nipple. Supply and demand, if there is a demand for the milk, your body will produce. Encouraged to ask for help as needed, will follow up tomorrow. Asked if any questions or concerns, client declined, thanked LC for helping. A: Client states her nipples feel better today verses yesterday, would like to latch or pump today. P: Patient should try latching infants for feeding or pump every 2-3 hours in the day, 3-4 hours at night to help with establishing her milk supply. Sandra Dumont, CLC
--- NOTE | 2016-09-15 10:27 | NUR ---
Pt amb to desk with request for towels. These are provided and this rn to room, bed linens changed while pt is in the shower.
--- NOTE | 2016-09-15 12:45 | NUR ---
sitting up in bed with regular diet tray, rates pain at 3/10, agreeable to Ibuprofen as charted on emar. Also given mom per her request. Pt states that her will not be here for 2-3 hours and he will be the one to go and get scripts filled, reassured her that was ok and all instructions could be done after he had returned. Side rails up x 2 with phone and call light in reach.
--- NOTE | 2016-09-15 14:31 | NUR ---
Pt calls out with questions about her scripts, Courtney Waller rn to room and provides pt spouse with written scripts for Demerol 50mg and Ibuprofen 600mg so that he can take these to pharmacy to be filled.
[2016-09-15 16:00] VITALS: BP 123/70
--- NOTE | 2016-09-15 17:30 | NUR ---
Verbal and written discharge/rooming in instructions given without questions or concerns. Pt spouse brought her filled scripts of Demerol and Iburprofen and she states when can be taken again. Printed instructions given for care of incision, and care when at home. Also states her understanding of rooming in and that she will make sure nursery knows if she will be off unit. Dietary also notified that pt is to room in and will stay in present room at this time.
== END 2016-09-15 18:00 | disposition home or self-care (01) | DRG 766 ==
LOC: D.LDO 06:53 → D.LD 08:06
PROVIDERS: ADMIT Obstetrics & Gynecology
PROC: 10D00Z1 Extraction of Products of Conception, Low, Open Approach (ICD-10-PCS; principal; 2016-09-12 08:15)
PROC: 0UB70ZZ Excision of Bilateral Fallopian Tubes, Open Approach (ICD-10-PCS; 2016-09-12 08:15)
DX: O34.219 Maternal care for unspecified type scar from previous cesarean delivery (principal); Z3A.36 36 weeks gestation of pregnancy; Z37.2 Twins, both liveborn; Z30.2 Encounter for sterilization; Z30.09 Encounter for other general counseling and advice on contraception

== ENCOUNTER 2018-03-20 21:00 | Emergency (ER) | payer BC ==
[~2018-03-20] VITALS: Ht 152.4 cm; Wt 57.3 kg
[2018-03-20 21:19] VITALS: Ht 152.4 cm; Wt 57.3 kg
[2018-03-20] MEDS ORDERED: PAXIL10 MG PO (21:20)
[2018-03-20 21:45] LABS: APPEARANCE CLEAR (CLEAR); BILIRUBIN NEGATIVE (NEGATIVE); COLOR STRAW (YELLOW); GLUCOSE NEGATIVE (NEGATIVE); KETONE NEGATIVE (NEGATIVE); NITRITE NEGATIVE (NEGATIVE); PROTEIN NEGATIVE (NEGATIVE); SPECIFIC GRAVITY 1.005 (1.005-1.020); UROBILINOGEN NORMAL (NORMAL)
[2018-03-20 21:55] LABS: BASOPHILS 0.5 % (0-2); EOSINOPHILS 3.7 % (0-7); HEMATOCRIT 42.4 % (36.0-48.0); HEMOGLOBIN 14.6 g/dL (12-16); LYMPHOCYTES 11.9 % (15-50); MCH 32.2 pg (26.0-34.0); MCHC 34.4 g/dL (31.0-37.0); MCV 93.4 fL (80.0-100.0); MEAN PLATELET VOLUME 9.9 fL (7.4-10.4); MONOCYTES 7.7 % (2-11); NEUTROPHILS 76.2 % (40-80); PLATELET COUNT 220 10x3/uL (130-400); RBC 4.54 10x6/uL (4.00-5.40); RDW 12.9 % (11.5-14.5); WBC 9.6 10x3/uL (4.8-10.8)
[2018-03-20 22:15] LABS: ALBUMIN 3.7 g/dL (3.4-5.0); ALKALINE PHOSPHATASE 87 U/L (46-116); ALT (SGPT) 25 U/L (10-68); AMYLASE - SERUM 62 U/L (25-115); BILIRUBIN - TOTAL 0.27 mg/dL (0.2-1.3); CALC OSMOLALITY 279 mosm/kg (275-300); CALCIUM 9.4 mg/dL (8.5-10.1); CHLORIDE - SERUM 105 mmol/L (98-107); CREATININE - SERUM 0.7 mg/dL (0.6-1.3); GLUCOSE 116 mg/dL (74-106); LIPASE 128 U/L (73-393); POTASSIUM - SERUM 4.6 mmol/L (3.5-5.1); SODIUM 139 mmol/L (136-145); UREA NITROGEN 14 mg/dL (7-18); eGFR NON AFRICAN AMERICAN > 90 mL/min (90-120)
[2018-03-20] MEDS ORDERED: ULTRAM50 MG PO (23:32)
[2018-03-21 00:51] VITALS: BP 99/67
== END 2018-03-21 00:22 | disposition home or self-care (01) ==
LOC: D.ER 21:00
PROVIDERS: Family Medicine
DX: N83.201 Unspecified ovarian cyst, right side (principal)

== ENCOUNTER 2019-02-23 17:46 | Emergency (ER) | payer BC ==
[~2019-02-23] VITALS: Ht 152.4 cm; Wt 59.1 kg
[~2019-02-23 17:46] MED LIST changes: +PAXIL10 MG PO; +ULTRAM50 MG PO
[2019-02-23 18:02] VITALS: Ht 152.4 cm; Wt 59.1 kg
[2019-02-23] MEDS ORDERED: SKELAXIN800 MG PO (19:46)
[2019-02-23] MEDS ORDERED: NAPROSYN500 MG PO (19:46)
[2019-02-23 20:37] VITALS: BP 120/79
== END 2019-02-23 20:44 | disposition home or self-care (01) ==
LOC: D.ER 17:46
DX: S16.1XXA Strain of muscle, fascia and tendon at neck level, initial encounter (principal); S39.012A Strain of muscle, fascia and tendon of lower back, initial encounter; V89.2XXA Person injured in unspecified motor-vehicle accident, traffic, initial encounter